=== PATIENT | male | born 1985 | race Caucasian/White ===

== ENCOUNTER 2020-06-28 17:21 | Emergency (ER) | payer BC, SELFPAY ==
[2020-06-28 17:32] VITALS: BP 119/78; PULSE 103; RESP 16; TEMP 37.2; O2SAT 99
--- NOTE | 2020-06-28 17:38 | ED.WOUNDLAC ---
HPI - Wound/Laceration General Chief Complaint: Wound/Laceration Stated Complaint: possible spider bite Time Seen by Provider: 06/28/20 17:38 Source: patient and RN notes reviewed History of Present Illness HPI narrative: Patient is a 35-year-old male who presents the urgent care with complaints of a possible spider bite to the left wrist. Patient states that he noticed a pimple-like region approximately a day and a half ago and his mother popped it and poured tea tree oil on the area. Patient states that today he used Hibiclens and believes he let the solution sit on the skin for too long. Patient states just recently has it started to increase in size and redness. Patient denies of any known fever, nausea, vomiting. No other acute complaints. No acute distress noted. Patient read the plan of care. Related Data Allergies Allergy/AdvReac Type Severity Reaction Status Date / Time adhesive Allergy Intermediate LOCAL RASH Verified 04/30/19 02:02 Penicillins Allergy Unknown Unknown Verified 04/30/19 02:02 Review of Systems Review of Systems: Narrative: CONSTITUTIONAL: Denies fever, chills, or sweats. EYES: Denies visual changes, redness, or discharge. ENT: Denies rhinorrhea, congestion, sore throat, or otalgia. CARDIOVASCULAR: Denies chest pain, palpitations, or edema. RESPIRATORY: Denies cough or dyspnea. GASTROINTESTINAL: Denies abdominal pain, nausea, vomiting, or diarrhea. GENITOURINARY: Denies dysuria or hematuria. SKIN: Reports of an open wound to the left wrist MUSCULOSKELETAL: Denies back pain, joint pain, or myalgia. NEUROLOGIC: Denies headache, numbness, or weakness. All other systems reviewed are negative, except as documented in HPI. PMFSH Comments At the time of my signature, I reviewed and agree with the nursing past medical, surgical, social, and family history. There is no relevant family history pertinent to the patient complaint. Exam Narrative: Exam Narrative: GENERAL: This is a well-nourished, well-developed patient, in no apparent distress. HEAD: normocephalic, atraumatic. EYES: PERRL. Sclera clear/white. Vision is grossly intact. EARS: External ears normal NOSE: External nose normal with no obvious nasal discharge, nares without redness, no rhinorrhea. THROAT: Mucous membranes moist NECK: Neck supple SKIN: 0.5cm draining wound with yellow to clear drainage on the radial aspect of the left wrist with 8 x 11 cm of erythema and mild edema NEURO: awake, alert, and oriented to person, place and time. There were no obvious focal neurologic abnormalities. EXTREMITIES: No clubbing, cyanosis, or edema. Positive strong left radial pulse with capillary refill less than 2 seconds. Course Vital Signs Vital signs: Vital Signs Temperature 99.0 F 06/28/20 17:32 Pulse Rate 103 H 06/28/20 17:32 Respiratory Rate 16 06/28/20 17:32 Blood Pressure 119/78 06/28/20 17:32 Pulse Oximetry 99 06/28/20 17:32 Temperature 99.0 F 06/28/20 17:32 Pulse Rate 103 H 06/28/20 17:32 Respiratory Rate 16 06/28/20 17:32 Blood Pressure 119/78 06/28/20 17:32 Pulse Oximetry 99 06/28/20 17:32 Reviewed MDM - Wound/Laceration MDM Narrative Medical decision making narrative: Advised the patient to clean the area very clean with plain Dial soap and water twice a day. The wound needs to be covered if at risk of being soiled or out in public/at work. Cover it with a non-occlusive gauze and a gauze wrap. Do not put a Band-Aid on the skin. Band-Aids could increase to redness and irritation. Do not use tea tree oil on the area. Use the prescription cream as directed. Do not try to poke or pried on the area. Complete oral antibiotic regimen as prescribed. Make sure to eat and drink with the medication. If you notice any increase in redness, swelling, pain associated with fever, nausea, vomiting?go to the emergency room immediately. Follow-up with your PCP within 2 to 5 days for reevaluation. Differential Diagnosi
== END 2020-06-28 17:49 | disposition home or self-care (01) ==
PROVIDERS: Emergency Provider Nurse Practitioner Family
DX: S61.502A Unspecified open wound of left wrist, initial encounter (principal); X58.XXXA Exposure to other specified factors, initial encounter; L03.114 Cellulitis of left upper limb; M41.9 Scoliosis, unspecified
CPT/HCPCS: 99213; G0463

== ENCOUNTER 2020-07-01 16:39 | Emergency (ER) | payer BC, SELFPAY ==
--- NOTE | ~2020-07-01 | XR_ITS ---
XR wrist LT min 3V DATE: 07/01/2020 17:42 INDICATION: Medial wrist pain for 5 days TECHNIQUE: 4 views COMPARISON: None FINDINGS: No fracture or dislocation, periosteal reaction or bone destruction, chondrocalcinosis or e rosive change. Joint spaces are preserved. IMPRESSION: Negative Reviewed, dictated and finalized at location A. IMPRESSION: Negative
[2020-07-01 16:47] VITALS: BP 137/74; PULSE 110; RESP 17; TEMP 36.8; O2SAT 100
--- NOTE | 2020-07-01 17:29 | ED.SKABFB ---
HPI - Skin/Abscess/Foreign Bdy General Chief complaint: Skin/Abscess/Foreign Body Stated complaint: infection on arm Time Seen by Provider: 07/01/20 17:14 Source: patient Mode of arrival: ambulatory Limitations: no limitations History of Present Illness HPI narrative: This is a 35-year-old male that presents the emergency department for wound to the left wrist x5 days. Reports he was seen at urgent care for this and started on Bactrim with little relief. Reports today he noted redness going up his arm which prompted him to be seen. Denies fever or drainage. Related Data Allergies Allergy/AdvReac Type Severity Reaction Status Date / Time adhesive Allergy Intermediate LOCAL RASH Verified 07/01/20 16:46 Penicillins Allergy Unknown Unknown Verified 07/01/20 16:46 Review of Systems Review of Systems: Narrative: CONSTITUTIONAL: Denies fever SKIN: Reports erythema and edema MUSCULOSKELETAL: Denies joint pain All systems reviewed & are unremarkable except as noted in HPI and below PMFSH Past Medical History Medical History (Updated 07/01/20 @ 19:56 by May Yee PA-C) History of bipolar disorder History of cellulitis Social History Social History (Updated 07/01/20 @ 17:31 by May Yee PA-C) Smoking status: Current every day smoker Gender identity (if verbalized by the patient): Male Exam Narrative: Exam Narrative: GENERAL: Well-appearing, well-nourished, and in no acute distress. HEAD: Normocephalic, atraumatic. EYES: EOMI. CHEST: Clear to auscultation. No respiratory distress. No wheezes rales or rhonchi HEART: Regular rate and rhythm. No murmur heard. Normal peripheral pulses. EXTREMITIES: Normal range of motion. Left wrist radial surface with 5cm area of erythema and edema, no obvious central fluctuance SKIN: Warm, dry, no rash. NEURO: No focal deficits. Alert and oriented x3. PSYCH: Normal mood and affect Course Consultations Consultation #1: Spoke with Dr. Faye about patient and work-up will follow-up in clinic. Date: 07/01/20 Time: 20:13 Vital Signs Vital signs: Vital Signs Temperature 98.3 F 07/01/20 16:47 Pulse Rate 110 H 07/01/20 16:47 Respiratory Rate 17 07/01/20 16:47 Blood Pressure 137/74 07/01/20 16:47 Pulse Oximetry 100 07/01/20 16:47 Temperature 98.3 F 07/01/20 16:47 Pulse Rate 102 H 07/01/20 17:47 Respiratory Rate 18 07/01/20 17:47 Blood Pressure 110/70 07/01/20 17:47 Pulse Oximetry 98 07/01/20 17:47 Procedures Abscess I/D upper extremity: Date of Incision: 07/01/20 Time of Incision: 19:53 Side (if applicable): left Local Anesthetic: lidocaine 1% and with epi Amount of anesthesia used (mL): 2 Technique: incised with #11 blade Packing used?: iodoform I&D Results: Pus and Blood MDM - Skin/Abscess/Foreign Bdy MDM Narrative Medical decision making narrative: Patient presents to the emergency department for left wrist abscess. He is afebrile and nontoxic-appearing. Patient initially evaluated at urgent care and started on Bactrim. CBC is without leukocytosis. Inflammatory markers are not elevated. Lactic acid is normal. Left wrist x-ray without acute findings. Abscess successfully drained today. Was instructed to continue his Bactrim as prescribed. Wound was sent for a culture. Spoke with Dr. Faye about patient and work-up will follow-up in clinic. Patient is stable and felt appropriate for further outpatient evaluation. He was given warnings to return to the ER Lab Data Attestation: I reviewed the patient's lab results. Result diagrams: 07/01/20 17:48 07/01/20 17:48 Labs: Lab Results 07/01/20 07/01/20 07/01/20 Range/Units 17:48 17:48 17:48 WBC 9.8 (4.5-10.0) K/mm3 RBC 4.40 L (4.6-6.20) M/mm3 Hgb 14.2 (14.0-18.0) g/dL Hct 40.4 L (42.0-52.0) % MCV 91.8 (80-100) fl MCH 32.3 (26-34) pg MCHC 35.1 (32-36) g/dl R
[2020-07-01 17:47] VITALS: BP 110/70; PULSE 102; RESP 18; O2SAT 98
[2020-07-01 17:59] LABS: Basophils Absolute Auto 0.1 K/mm3 (0.0-0.1); Basophils Percent Auto 0.5 % (0.2-1.2); Eosinophils Absolute Auto 0.1 K/mm3 (0-0.3); Eosinophils Percent Auto 0.8 % (0-4.4); Hematocrit 40.4 % (42.0-52.0); Hemoglobin 14.2 g/dL (14.0-18.0); Immature Granulocyte Absolute 0.02 K/mm3 (0.00-0.031); Immature Granulocyte Percent A 0.2 % (0-0.5); Lymphocytes Absolute Auto 1.81 K/mm3 (0.9-3.2); Lymphocytes Percent Auto 18.5 % (18.3-44.2); Mean Corpuscular HGB Conc 35.1 g/dl (32-36); Mean Corpuscular Hemoglobin 32.3 pg (26-34); Mean Corpuscular Volume 91.8 fl (80-100); Monocytes Absolute Auto 0.9 K/mm3 (0.1-0.6); Monocytes Percent Auto 9.6 % (2.6-8.5); Neutrophils Absolute Auto 6.9 K/mm3 (1.3-6.7); Neutrophils Percent Auto 70.4 % (45.5-73.1); Platelet Count Result 272 k/mm3 (150-375); Red Cell Distribution Width 13.1 % (11.5-14.5); White Blood Count 9.8 K/mm3 (4.5-10.0)
[2020-07-01 18:09] LABS: Lactic Acid Reflex 1.3 mmol/L (0.7-2.1)
[2020-07-01 18:18] LABS: Anion Gap 6 mmol/L (8-16); Blood Urea Nitrogen 12 mg/dL (9-20); Calcium 8.6 mg/dL (8.4-10.2); Carbon Dioxide 26 mmol/L (22-30); Chloride 105 mmol/L (98-107); Estimated CRCL calculation 89 ml/min; Estimated Glomerular Filt Rate > 60; Glucose 107 mg/dL (75-110); Sodium 137 mmol/L (137-145)
[2020-07-01 18:29] LABS: Erythrocyte Sedimentation Rate 17 mm/hr (0-20)
[2020-07-01] MEDS: TETANUS,DIPHTHERIA,AC PERTUSSIS ADULT (0.5 ML) BOOSTRIX IM (20:14)
[2020-07-01 20:21] VITALS: BP 118/75; PULSE 98; RESP 18; O2SAT 99
== END 2020-07-01 20:24 | disposition home or self-care (01) ==
PROVIDERS: Physician Assistant; Emergency Provider Emergency Medicine
DX: L02.414 Cutaneous abscess of left upper limb (principal); F17.200 Nicotine dependence, unspecified, uncomplicated; Z23 Encounter for immunization
CPT/HCPCS: 10061; 36415; 73110; 80048; 83605; 85025; 85652; 86140; 87070; 87075; 87147; 87186; 87205; 90471; 90715; 99283

== ENCOUNTER 2023-02-15 16:52 | Emergency (ER) | payer BC, SELFPAY ==
[2023-02-15 16:53] VITALS: BP 123/79; PULSE 100; RESP 16; TEMP 36.6; O2SAT 99
--- NOTE | 2023-02-15 18:57 | ED.DENTAL ---
HPI - Dental/Oral General Chief complaint: Dental/Oral Stated complaint: dental abcess Time Seen by Provider: 02/15/23 18:19 History of Present Illness HPI Narrative: 47-year-old male here for evaluation of right upper dental pain and swelling x2 days. Patient has a history of poor dentition and does have close follow-up with a dentist. He contacted his dentist and they were able to get him an appointment in 48 hours but states that his pain is too severe to wait. He denies any fevers, chills, trismus, nausea, vomiting. Related Data Allergies Allergy/AdvReac Type Severity Reaction Status Date / Time adhesive Allergy Intermediate LOCAL RASH Verified 02/15/23 18:57 Penicillins Allergy Unknown Unknown Verified 02/15/23 18:57 Review of Systems Review of Systems: Gen.: Denies fevers or chills Eyes: Denies eye pain or visual change ENT: Reports dental pain Respiratory: Denies shortness of breath or cough CV: Denies chest pain or palpitations GI: Denies abdominal pain nausea, emesis or diarrhea denies burning, urgency, frequency or hematuria Musculoskeletal: Denies back pain or muscle pain Neuro: Denies numbness, tingling, weakness or focal weakness Skin: Denies rash Except as documented, all other systems reviewed and negative PMFSH Past Medical History Medical History Cutaneous abscess of left wrist History of bipolar disorder History of cellulitis MRSA (methicillin resistant staph aureus) culture positive Social History Social History Smoking status: Current every day smoker Gender identity (if verbalized by the patient): Male Exam Narrative: APPEARANCE: Well appearing, no pain in distress, well-nourished. Head: Normocephalic and atraumatic. EYES: PERRLA/EOMI, conjunctivae clear NOSE: No nasal drainage EARS: External ear normal in appearance THROAT: Oropharynx is clear. Mucous membranes are moist. NECK: Supple. No adenopathy, no masses. RESPIRATORY: Airway patent, respirations nonlabored. Clear to auscultation bilaterally, no rales, rhonchi, wheezing. CARDIOVASCULAR: Regular rate and rhythm without murmurs, rubs, or gallops. ABDOMINAL: Normoactive bowel sounds. Soft, nontender, nondistended. No rebound tenderness or guarding. MUSCULOSKELETAL: Extremities are warm and well-perfused. Moves all extremities well. No edema. NEURO: Normal speech. No focal neurologic deficits. SKIN: Skin is warm and dry. No rashes. PSYCHIATRIC: Normal affect/mood.. Course Vital Signs Vital signs: Vital Signs Temperature 97.8 F 02/15/23 16:53 Pulse Rate 100 02/15/23 16:53 Respiratory Rate 16 02/15/23 16:53 Blood Pressure 123/79 02/15/23 16:53 Pulse Oximetry 99 02/15/23 16:53 Oxygen Delivery Room Air 02/15/23 16:53 Temperature 97.8 F 02/15/23 16:53 Pulse Rate 100 02/15/23 16:53 Respiratory Rate 16 02/15/23 16:53 Blood Pressure 123/79 02/15/23 16:53 Pulse Oximetry 99 02/15/23 16:53 Oxygen Delivery Room Air 02/15/23 16:53 MDM - Dental/Oral MDM Narrative Medical decision making narrative: Patient presents for dental pain due to suspected dental sara or abscess. Patient not immunosuppressed, afebrile and well appearing with patent airway, have low suspicion for deep space infection or any concern for airway compromise. Based on history, physical, and work up. No evidence of tooth fracture, avulsion, or bleeding socket. No evidence of RPA, [employer], Ricky?s angina, periapical abscess. Instructed patient to continue to treat pain with ibuprofen/acetaminophen until they see a dentist. Will send home with clindamycin given penicillin allergy. Patient discharged home and will follow up with dentist. Discussed return precautions for odontogenic infections and other dental pain emergencies. He has follow-up with a dentist in 2 days. Discharge Plan Discharge Clinical Impression:
[2023-02-15] MEDS: KETOROLAC 30 MG/ML VIAL (*BKC) IM (18:58)
== END 2023-02-15 19:14 | disposition home or self-care (01) ==
PROVIDERS: Emergency Provider Physician Assistant
DX: K08.89 Other specified disorders of teeth and supporting structures (principal); F17.200 Nicotine dependence, unspecified, uncomplicated
CPT/HCPCS: 96372; 99283; J1885